=== PATIENT | female | born 2000 | race Caucasian/White ===

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

== ENCOUNTER 2020-08-02 19:47 | Emergency (ER) | payer MEDICAID ==
[2020-08-02 21:03] VITALS: BP 126/85; PULSE 76
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
== END 2020-08-02 22:03 | disposition designated cancer center or children's hospital (05) ==
LOC: JP.ED 19:47
DX: G89.29 Other chronic pain (principal); M54.5 Low back pain; E66.01 Morbid (severe) obesity due to excess calories; I10 Essential (primary) hypertension; J45.909 Unspecified asthma, uncomplicated; E11.9 Type 2 diabetes mellitus without complications; E03.9 Hypothyroidism, unspecified; Z68.43 Body mass index [BMI] 50.0-59.9, adult; Z87.891 Personal history of nicotine dependence; Z79.899 Other long term (current) drug therapy
CPT/HCPCS: 99283

== ENCOUNTER 2020-11-17 19:18 | Emergency (ER) | payer MEDICAID ==
[2020-11-17] MEDS ORDERED: Lidocaine 1% with EPINEPHrine 1:100,000 50 ML MDV INFILT STA (19:38)
[2020-11-17 19:39] VITALS: BP 149/101; PULSE 94
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
== END 2020-11-17 20:11 | disposition home or self-care (01) ==
LOC: JP.ED 19:18
DX: L02.416 Cutaneous abscess of left lower limb (principal); E03.9 Hypothyroidism, unspecified; I10 Essential (primary) hypertension; E66.9 Obesity, unspecified; E11.9 Type 2 diabetes mellitus without complications; Z68.43 Body mass index [BMI] 50.0-59.9, adult; Z79.899 Other long term (current) drug therapy
CPT/HCPCS: 10060; 87070; 87077; 87186; 87205; 99283-25

== ENCOUNTER 2020-11-20 13:55 | Emergency (ER) | payer MEDICAID ==
[2020-11-20 14:43] VITALS: BP 169/97; PULSE 87
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
== END 2020-11-20 15:50 | disposition home or self-care (01) ==
LOC: JP.ED 13:55
DX: L02.214 Cutaneous abscess of groin (principal); A49.02 Methicillin resistant Staphylococcus aureus infection, unspecified site; L73.2 Hidradenitis suppurativa; E03.9 Hypothyroidism, unspecified; E11.9 Type 2 diabetes mellitus without complications; E66.9 Obesity, unspecified; I10 Essential (primary) hypertension; Z68.30 Body mass index [BMI] 30.0-30.9, adult; Z79.899 Other long term (current) drug therapy
CPT/HCPCS: 99282; 99283

== ENCOUNTER 2020-11-27 15:15 | Emergency (ER) | payer MEDICAID ==
[2020-11-27 16:10] VITALS: BP 118/85; PULSE 78
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
== END 2020-11-27 16:50 | disposition home or self-care (01) ==
LOC: JP.ED 15:15
DX: Z48.817 Encounter for surgical aftercare following surgery on the skin and subcutaneous tissue (principal); E03.9 Hypothyroidism, unspecified; I10 Essential (primary) hypertension; E11.9 Type 2 diabetes mellitus without complications; E66.9 Obesity, unspecified; Z68.43 Body mass index [BMI] 50.0-59.9, adult; Z79.899 Other long term (current) drug therapy
CPT/HCPCS: 99282

== ENCOUNTER 2020-12-30 04:47 | Emergency (ER) | payer MEDICAID ==
[2020-12-30 04:53] VITALS: BP 140/95; PULSE 93
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
[2020-12-30] MEDS ORDERED: Sodium Chloride 0.9% 1,000 ML IV SCH (06:00)
[2020-12-30] MEDS ORDERED: Iopamidol 612 MG/ML 150 ML Bottle IV STA (06:01)
--- NOTE | 2020-12-30 07:24 | CRLCT ---
For Patients: As a result of the Century Cures Act, medical imaging exams and procedure reports are released immediately into your electronic medical record. You may view this report before your referring provider. If you have questions, please contact your health care provider. Indication: Lower abdominal pain Technique: Volumetric multidetector CT images of the abdomen and pelvis were obtained after the administration of intravenous contrast. 180 cc Isovue-300 low osmolar intravenous contrast Comparison: CT abdomen and pelvis September 11, 2019 Findings: There is minimal basilar atelectasis versus scar. The liver is markedly enlarged with a somewhat wrap-around configuration. There is moderate hepatic steatosis and minimal likely focal fatty sparing along the anteroinferior right liver. The portal vein is patent. There is prior cholecystectomy. There is no significant common biliary ductal dilatation or abrupt cut off. The spleen is normal in enhancement and size. There is mild thickening of the gastric antrum. The pancreas is normal in enhancement without significant atrophy. The adrenal glands are unremarkable. There is enlargement of the right kidney commensurate with compensatory hypertrophic change. There is likely again congenital absence of the left kidney. The colon is somewhat decompressed with minimal stool seen throughout the colon with somewhat dilated fluid-filled loops of distal small bowel. The appendix is unremarkable. There is no significant mesenteric, retroperitoneal, or pelvic sidewall lymph nodes. The aorta is nonaneurysmal. There is no significant atherosclerotic disease appreciated. There is again seen a somewhat prominent right ovary with a para ovarian cyst there is likely an additional small dominant left ovarian follicle. Otherwise, the pelvic viscera are unremarkable. Incidental note is made of a small linear surgical clip in the left lower quadrant abdomen seen on series 2, image 124 which may represent sequela of prior cholecystectomy. There is a minimal amount of fluid seen within the right greater than left lower quadrants otherwise there is no intra-abdominal free air or free fluid. There is a small fat containing umbilical hernia otherwise the anterior abdominal wall is grossly intact. The lumbar vertebral body heights are grossly maintained with minimal endplate Schmorl`s defects. There is moderate facet arthrosis. Impression: Demonstration of inflammatory changes and fluid within the right lower greater than left lower quadrants which could represent sequela of minimal distal enteritis changes versus developing physiologic changes of right ovary with follicular/cystic rupture and deposition of physiologic fluid. Correlate with clinical history and/or consider evaluation with ultrasound if there is persistent clinical concern. Stable marked hepatomegaly and hepatic steatosis with a somewhat wraparound liver configuration. 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 Normal appendix. Otherwise no additional acute intra-abdominal abnormalities are appreciated. Please note that all CT scans at this facility use dose modulation, iterative reconstruction, and/or weight-based dosing when appropriate to reduce radiation dose to as low as reasonably achievable. Dictated by Zen Valdovinos MD @ 12/30/2020 7:24:09 AM (Electronically Signed)
[2020-12-30] MEDS ORDERED: Acetaminophen/HYDROcodone 325-5 MG Tab PO ONE (07:52)
== END 2020-12-30 08:23 | disposition home or self-care (01) ==
LOC: JP.ED 04:47
DX: N83.201 Unspecified ovarian cyst, right side (principal); I10 Essential (primary) hypertension; J45.909 Unspecified asthma, uncomplicated; E11.9 Type 2 diabetes mellitus without complications; E03.9 Hypothyroidism, unspecified; E66.9 Obesity, unspecified; Z68.43 Body mass index [BMI] 50.0-59.9, adult; Z79.899 Other long term (current) drug therapy
CPT/HCPCS: 36415; 74177; 80053; 83605; 83690; 84703; 85025; 99285; A9270; J7030; Q9967

== ENCOUNTER 2020-12-30 16:13 | Emergency (ER) | payer MEDICAID ==
[2020-12-30 17:10] VITALS: BP 159/108; PULSE 96
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
== END 2020-12-30 18:08 | disposition home or self-care (01) ==
LOC: JP.ED 16:13
DX: T16.2XXA Foreign body in left ear, initial encounter (principal); I10 Essential (primary) hypertension; J45.909 Unspecified asthma, uncomplicated; E11.9 Type 2 diabetes mellitus without complications; E03.9 Hypothyroidism, unspecified; E66.9 Obesity, unspecified; Z68.43 Body mass index [BMI] 50.0-59.9, adult; Z79.899 Other long term (current) drug therapy
CPT/HCPCS: 99282

== ENCOUNTER 2021-01-19 15:53 | Emergency (ER) | payer MEDICAID | END 2021-01-19 17:03 | disposition left against medical advice (07) | LOC: JP.ED 15:53 | DX: Z53.21 Procedure and treatment not carried out due to patient leaving prior to being seen by health care provider (principal) ==

== ENCOUNTER 2021-04-10 13:08 | Emergency (ER) | payer MEDICAID | END 2021-04-10 14:30 | disposition left against medical advice (07) | LOC: JP.ED 13:08 | DX: M54.9 Dorsalgia, unspecified (principal); Z53.21 Procedure and treatment not carried out due to patient leaving prior to being seen by health care provider ==

== ENCOUNTER 2021-07-17 21:12 | Emergency (ER) | payer MEDICAID ==
[2021-07-17] MEDS ORDERED: Clindamycin HCl 150 MG Cap PO ONE (22:07)
[2021-07-17 22:08] VITALS: BP 109/69; PULSE 117
== END 2021-07-17 22:19 | disposition home or self-care (01) ==
LOC: JP.ED 21:12
DX: L02.31 Cutaneous abscess of buttock (principal); I10 Essential (primary) hypertension; E11.9 Type 2 diabetes mellitus without complications; E03.9 Hypothyroidism, unspecified; E66.9 Obesity, unspecified; Z68.30 Body mass index [BMI] 30.0-30.9, adult; Z79.899 Other long term (current) drug therapy; Z79.4 Long term (current) use of insulin; Z22.322 Carrier or suspected carrier of Methicillin resistant Staphylococcus aureus
CPT/HCPCS: 10060; 87070; 87205; 99283; 99283-25; A9270-GY

== ENCOUNTER 2021-08-27 10:45 | Emergency (ER) | payer MEDICAID ==
[2021-08-27 11:06] VITALS: BP 125/61; PULSE 88
== END 2021-08-27 11:50 | disposition home or self-care (01) ==
LOC: JP.ED 10:45
DX: O02.1 Missed abortion (principal); E11.65 Type 2 diabetes mellitus with hyperglycemia; E03.9 Hypothyroidism, unspecified; I10 Essential (primary) hypertension; E66.9 Obesity, unspecified; Z68.43 Body mass index [BMI] 50.0-59.9, adult; Z3A.09 9 weeks gestation of pregnancy; Z79.4 Long term (current) use of insulin; Z79.899 Other long term (current) drug therapy; Z90.49 Acquired absence of other specified parts of digestive tract
CPT/HCPCS: 82947; 99283

== ENCOUNTER 2022-07-07 20:06 | Emergency (ER) | payer MEDICAID ==
[2022-07-07 20:33] VITALS: BP 154/91; PULSE 106
[2022-07-07] MEDS ORDERED: Lidocaine 1% with EPINEPHrine 1:100,000 50 ML MDV INFILT STA (20:38)
== END 2022-07-07 21:20 | disposition home or self-care (01) ==
LOC: JP.ED 20:06
DX: L05.01 Pilonidal cyst with abscess (principal); I10 Essential (primary) hypertension; J45.909 Unspecified asthma, uncomplicated; E11.9 Type 2 diabetes mellitus without complications; E03.9 Hypothyroidism, unspecified; E66.9 Obesity, unspecified; Z86.16 Personal history of COVID-19; Z79.899 Other long term (current) drug therapy; Z87.891 Personal history of nicotine dependence; Z68.43 Body mass index [BMI] 50.0-59.9, adult
CPT/HCPCS: 10060; 10080; 87070; 87077; 87205; 99282; 99283

== ENCOUNTER 2023-05-27 18:51 | Inpatient (IN) | payer MEDICAID ==
[2023-05-27 19:45] LABS: BASOPHILS ABSOLUTE AUTO 0.12 K/uL (0.00-0.10); BASOPHILS PERCENT AUTO 0.3 % (0.1-1.3); EOSINOPHILS ABSOLUTE AUTO 0.04 K/uL (0.00-0.40); EOSINOPHILS PERCENT AUTO 0.1 % (0.0-5.4); HEMATOCRIT 43.9 % (34.3-46.0); HEMOGLOBIN 14.9 g/dL (11.2-15.5); IMMATURE GRAN ABSOLUTE AUTO 1.34 K/uL (0.00-0.23); LYMPHOCYTES ABSOLUTE AUTO 1.45 K/uL (0.8-3.3); LYMPHOCYTES PERCENT AUTO 3.3 % (11.4-47.7); MEAN CORPUSCULAR HEMOGLOBIN 29.9 pg (31.6-35.5); MEAN CORPUSCULAR HGB CONC 33.9 g/dL (31.6-35.5); MONOCYTES ABSOLUTE AUTO 3.59 K/uL (0.20-0.90); MONOCYTES PERCENT AUTO 8.1 % (3.3-12.6); NEUTROPHILS ABSOLUTE AUTO 37.78 K/uL (1.0-7.6); NEUTROPHILS PERCENT AUTO 85.2 % (40.0-78.1); PLATELET COUNT,PLT 369 K/uL (130-375); RED BLOOD CELL COUNT 4.99 M/uL (3.77-5.24)
[2023-05-27 19:50] LABS: WHITE BLOOD CELL COUNT,WBC 44.3 K/uL (3.2-11.0)
[2023-05-27 19:59] LABS: A/G RATIO 0.7 (1.2-2.2); ALANINE AMINOTRANSFERASE,ALT 24 U/L (12-78); ALBUMIN 3.2 g/dL (3.4-5.0); ALKALINE PHOSPHATASE 131 U/L (46-116); ASPARTATE AMNIOTRANSFERASE,AST 13 U/L (15-37); BILIRUBIN TOTAL 1.7 mg/dL (0.2-1.0); BLOOD UREA NITROGEN,BUN 10 mg/dL (7-18); CALCIUM 9.4 mg/dL (8.5-10.1); CARBON DIOXIDE,CO2 21 mmol/L (21-32); CHLORIDE,CL 96 mmol/L (100-108); ESTIMATED GFR 82 mL/min (>60); GLUCOSE RANDOM 175 mg/dL (74-106); POTASSIUM,K 3.5 mmol/L (3.6-5.2); SODIUM,NA 133 mmol/L (140-148)
[2023-05-27] MEDS: Sodium Chloride 0.9% 1,000 ML IV ONE ×2 (19:59→22:40)
[2023-05-27] MEDS: Ondansetron 4 MG/2 ML SDV IVPUSH ONE (20:00)
[2023-05-27 20:22] LABS: ANION GAP 19.5 mmol/L (5.0-14.0)
[2023-05-27] MEDS ORDERED: Naloxone 0.4 MG/ML SDV IVPUSH PRN ×3 (20:37→22:49)
[2023-05-27 20:43] LABS: C-REACTIVE PROTEIN 26.93 mg/dL (<0.50)
[2023-05-27] MEDS: cefTRIAXone 2 GM in Sodium Chloride 0.9% 50 ML IV ONE (21:02)
[2023-05-27] MEDS: HYDROmorphone 0.5 MG/0.5 ML Syringe IVPUSH ONE ×2 (21:04→22:14)
[2023-05-27] MEDS: Sodium Chloride 0.9% 10 ML Syringe FLUSH PRN (21:05)
[2023-05-27] MEDS: metroNIDAZOLE/Normal Saline 500 MG in Premix Bag 1 BAG IV ONE (22:01)
[2023-05-27] MEDS: Iopamidol 612 MG/ML 100 ML Bottle IV SCH (22:24)
[2023-05-27] MEDS: Sodium Chloride 0.9% 100 ML IV SCH (22:24)
[2023-05-27] MEDS: Morphine 2 MG/ML SYRINGE IVPUSH ONE (22:58)
[2023-05-27] MEDS: Vancomycin 2 GM in Sodium Chloride 0.9% 500 ML IV ONE (23:25)
[2023-05-27] MEDS: Water For Injection, Sterile 40 ML ONE (23:28)
[2023-05-28 01:02] LABS: CORONAVIRUS COVID-19 NAA NEGATIVE (NEGATIVE); INFLUENZA A NAA NEGATIVE (NEGATIVE); INFLUENZA B NAA NEGATIVE (NEGATIVE); RESPIRATORY SYNCYTIAL VIR NAA NEGATIVE (NEGATIVE)
[2023-05-28] MEDS ORDERED: Glucagon,Human Recombinant 1 MG Vial IM PRN (01:05)
[2023-05-28] MEDS ORDERED: 50% Dextrose in Water 50 ML Syringe IVPUSH PRN (01:05)
[2023-05-28] MEDS ORDERED: Docusate Sodium 100 MG Cap PO PRN (01:05)
[2023-05-28] MEDS ORDERED: Albuterol 0.083% 2.5 MG/3 ML Neb Soln NEB PRN (01:05)
[2023-05-28] MEDS ORDERED: Potassium Chloride 20 MEQ in Premix Bag 1 BAG IV ONE (01:05)
[2023-05-28] MEDS: Morphine 2 MG/ML SYRINGE IVPUSH PRN (01:37)
[2023-05-28] MEDS: Ondansetron 4 MG Tab.DIS PO PRN (01:40)
[2023-05-28] MEDS: Sodium Chloride 0.9% 1,000 ML IV SCH (01:42)
[2023-05-28] MEDS: Potassium Chloride 10 MEQ in Premix Bag 1 BAG IV SCH ×2 (01:49→10:16)
[2023-05-28] MEDS: oxyCODONE 5 MG Tab PO PRN (01:56)
[2023-05-28] MEDS: Acetaminophen 325 MG Tab PO PRN (01:59)
[2023-05-28] MEDS: Pantoprazole 40 MG Vial IV SCH (02:42)
[2023-05-28] MEDS: Sodium Chloride 0.9% 1,000 ML IV ONE (02:46)
[2023-05-28 05:26] LABS: MEAN CORPUSCULAR HEMOGLOBIN 30.4 pg (31.6-35.5); MEAN CORPUSCULAR HGB CONC 33.3 g/dL (31.6-35.5); MEAN CORPUSCULAR VOLUME 91.1 fL (81.4-99.0); PLATELET COUNT,PLT 237 K/uL (130-375); RED BLOOD CELL COUNT 3.95 M/uL (3.77-5.24); WHITE BLOOD CELL COUNT,WBC 26.4 K/uL (3.2-11.0)
[2023-05-28 05:51] LABS: C-REACTIVE PROTEIN 24.06 mg/dL (<0.50); CALCIUM 7.9 mg/dL (8.5-10.1); CREATININE 0.8 mg/dL (0.6-1.0); EST CRCL DRUG DOSING (CG) 87.24 mL/min; POTASSIUM,K 3.3 mmol/L (3.6-5.2)
[2023-05-28 05:53] LABS: ANION GAP 14.3 mmol/L (5.0-14.0)
[2023-05-28 06:17] LABS: BAND ABSOLUTE MAN 5.28 K/uL; BAND PERCENT MAN 20 % (5-11); LYMPHOCYTES ABSOLUTE MAN 1.32 K/uL (0.8-3.3); LYMPHOCYTES PERCENT MAN 5 % (24-44); METAMYELOCYTE ABSOLUTE MAN 1.32 K/uL; METAMYELOCYTE PERCENT MAN 5 %; MONOCYTES ABSOLUTE MAN 0.79 K/uL (0.20-0.90); MONOCYTES PERCENT MAN 3 % (2-6); NEUTROPHILS ABSOLUTE MAN 17.69 K/uL (1.0-7.6); SEG NEUTROPHILS PERCENT MAN 67 % (36-66)
[2023-05-28] MEDS: metroNIDAZOLE/Normal Saline 500 MG in Premix Bag 1 BAG IV SCH (06:25)
[2023-05-28] MEDS ORDERED: Non-Formulary Medication 1 Each (Levothyroxine [Levothyroxine] 200 MCG Tablet) PO SCH (07:30)
[2023-05-28] MEDS ORDERED: Levothyroxine 100 MCG Tab PO SCH (07:30)
[2023-05-28] MEDS ORDERED: Vancomycin 1 GM SDV IV SCH (08:00)
[2023-05-28] MEDS ORDERED: DOCOSAHEXAENOIC ACID 200 MG PO SCH (09:00)
[2023-05-28] MEDS: Insulin Lispro 100 Unit/ML 3 ML KwikPen SUBCUT SCH (09:07)
[2023-05-28] MEDS: Citalopram 20 MG Tab PO SCH ×2 (09:20→21:40)
[2023-05-28] MEDS: Enoxaparin 40 MG/0.4 ML Syringe SUBCUT SCH (09:20)
[2023-05-28] MEDS: busPIRone 5 MG Tab PO SCH (09:20)
[2023-05-28] MEDS: Magnesium Sulfate/Water 2 GM in Premix Bag 1 BAG IV SCH (16:00)
[2023-05-28] MEDS ORDERED: Ondansetron 4 MG/2 ML SDV IVPUSH PRN (17:10)
[2023-05-28] MEDS: LORazepam 2 MG/ML SDV IV PRN (17:46)
[2023-05-28] MEDS ORDERED: Pantoprazole 40 MG Vial IV SCH (21:00)
[2023-05-28] MEDS: cefTRIAXone 2 GM in Sodium Chloride 0.9% 50 ML IV SCH (21:39)
[2023-05-28] MEDS: Pantoprazole 40 MG Tab.CR PO SCH (21:40)
[2023-05-28] MEDS: Insulin Glargine,Human Rec. Analog 100 Units/ML 3 ML Pen SUBCUT SCH (21:40)
[2023-05-28] MEDS: oxyCODONE 5 MG Tab PO ONE (22:07)
[2023-05-28] MEDS: Melatonin 3 MG Tab PO SCH (22:08)
[2023-05-29] MEDS: oxyCODONE 5 MG Tab PO PRN (05:20)
[2023-05-29] MEDS: Sodium Chloride 0.9% 1,000 ML IV SCH (06:40)
[2023-05-29 10:53] LABS: CALCIUM 8.4 mg/dL (8.5-10.1); CREATININE 0.8 mg/dL (0.6-1.0); EST CRCL DRUG DOSING (CG) 87.24 mL/min; POTASSIUM,K 3.6 mmol/L (3.6-5.2); VANCOMYCIN RANDOM 12.5 ug/mL (0.0-50.0)
[2023-05-29 10:56] LABS: HEMATOCRIT 38.1 % (34.3-46.0); HEMOGLOBIN 12.7 g/dL (11.2-15.5); MEAN CORPUSCULAR HEMOGLOBIN 30.2 pg (31.6-35.5); MEAN CORPUSCULAR HGB CONC 33.3 g/dL (31.6-35.5); MEAN CORPUSCULAR VOLUME 90.5 fL (81.4-99.0); RED BLOOD CELL COUNT 4.21 M/uL (3.77-5.24)
[2023-05-29 11:46] LABS: ANION GAP 15.6 mmol/L (5.0-14.0)
[2023-05-29] MEDS: Potassium Chloride 20 MEQ Tab.ER PO ONE (12:12)
[2023-05-29] MEDS: Ibuprofen 600 MG Tab PO PRN (13:00)
[2023-05-29] MEDS: Meropenem 1 GM in Sodium Chloride 0.9% 100 ML IV SCH (16:49)
[2023-05-29] MEDS ORDERED: fentaNYL 250 MCG/5 ML SDV ONE (17:16)
[2023-05-29] MEDS ORDERED: Dexamethasone 4 MG/ML SDV ONE (17:17)
[2023-05-29] MEDS ORDERED: Propofol 200 MG/20 ML SDV ONE (17:17)
[2023-05-29] MEDS ORDERED: Glycopyrrolate 0.2 MG/ML 5 ML MDV ONE (17:17)
[2023-05-29] MEDS ORDERED: Succinylcholine 200 MG/10 ML MDV ONE (17:17)
[2023-05-29] MEDS ORDERED: Ondansetron 4 MG/2 ML SDV ONE (17:17)
[2023-05-29] MEDS ORDERED: Rocuronium 50 MG/5 ML Vial ONE (17:17)
[2023-05-29] MEDS ORDERED: Neostigmine Methylsulfate 10 MG/10 ML MDV ONE (17:17)
[2023-05-29] MEDS ORDERED: Bupivacaine 0.5%/EPINEPHrine 1:200,000 50 ML MDV ONE (17:23)
[2023-05-29] MEDS ORDERED: Sennosides/Docusate Sodium 50-8.6 MG Tab PO PRN (17:26)
[2023-05-29] MEDS ORDERED: Promethazine 25 MG/ML SDV IM PRN (17:26)
[2023-05-29] MEDS ORDERED: Benzocaine/Cetylpyridinium/Menthol Lozenge MUCMEM PRN (17:26)
[2023-05-29] MEDS ORDERED: Acetaminophen/oxyCODONE 325-10 MG Tab PO PRN (17:26)
[2023-05-29] MEDS ORDERED: Polyethylene Glycol 3350 Powder 17 GM Packet PO PRN (17:26)
[2023-05-29] MEDS ORDERED: Sugammadex Sodium 200 MG/2 ML VIAL IV ONE (18:53)
[2023-05-29] MEDS ORDERED: Lactated Ringers 1,000 ML ONE (18:55)
[2023-05-29] MEDS: fentaNYL 100 MCG/2 ML SDV IVPUSH PRN (20:26)
[2023-05-29] MEDS: Insulin Glargine,Human Rec. Analog 100 Units/ML 3 ML Pen SUBCUT SCH (21:13)
[2023-05-29] MEDS: HYDROmorphone 0.5 MG/0.5 ML Syringe IVPUSH PRN (21:20)
[2023-05-29] MEDS: diphenhydrAMINE 50 MG/ML SDV IVPUSH PRN (22:46)
[2023-05-30] MEDS: Sodium Chloride 0.9% 1,000 ML IV SCH (02:03)
[2023-05-30 05:25] LABS: HEMATOCRIT 36.2 % (34.3-46.0); HEMOGLOBIN 11.9 g/dL (11.2-15.5); MEAN CORPUSCULAR HGB CONC 32.9 g/dL (31.6-35.5); MEAN CORPUSCULAR VOLUME 91.2 fL (81.4-99.0); RED BLOOD CELL COUNT 3.97 M/uL (3.77-5.24); WHITE BLOOD CELL COUNT,WBC 22.1 K/uL (3.2-11.0)
[2023-05-30 05:54] LABS: A/G RATIO 0.4 (1.2-2.2); ALANINE AMINOTRANSFERASE,ALT 13 U/L (12-78); ALBUMIN 1.5 g/dL (3.4-5.0); ALKALINE PHOSPHATASE 111 U/L (46-116); ASPARTATE AMNIOTRANSFERASE,AST 12 U/L (15-37); BILIRUBIN TOTAL 0.3 mg/dL (0.2-1.0); BLOOD UREA NITROGEN,BUN 10 mg/dL (7-18); CALCIUM 8.3 mg/dL (8.5-10.1); CARBON DIOXIDE,CO2 22 mmol/L (21-32); CHLORIDE,CL 103 mmol/L (100-108); CREATININE 0.7 mg/dL (0.6-1.0); ESTIMATED GFR 125 mL/min (>60); GLUCOSE RANDOM 131 mg/dL (74-106); POTASSIUM,K 4.3 mmol/L (3.6-5.2); PROTEIN TOTAL,TP 5.6 g/dL (6.4-8.2); SODIUM,NA 134 mmol/L (140-148)
[2023-05-30 07:08] LABS: ANION GAP 13.3 mmol/L (5.0-14.0)
[2023-05-30 07:09] LABS: C-REACTIVE PROTEIN 31.03 mg/dL (<0.50)
[2023-05-30] MEDS ORDERED: Sodium Chloride 0.9% 1,000 ML IV SCH (10:15)
[2023-05-30] MEDS: Morphine 4 MG/ML Syringe IVPUSH PRN (11:46)
[2023-05-30] MEDS: ALPRAZolam 0.5 MG Tab PO PRN (11:46)
[2023-05-31 06:09] LABS: HEMOGLOBIN 11.1 g/dL (11.2-15.5); MEAN CORPUSCULAR HEMOGLOBIN 29.6 pg (31.6-35.5); MEAN CORPUSCULAR HGB CONC 32.6 g/dL (31.6-35.5); MEAN CORPUSCULAR VOLUME 90.7 fL (81.4-99.0); RED BLOOD CELL COUNT 3.75 M/uL (3.77-5.24); WHITE BLOOD CELL COUNT,WBC 21.4 K/uL (3.2-11.0)
[2023-05-31 06:33] LABS: CREATININE 0.6 mg/dL (0.6-1.0); EST CRCL DRUG DOSING (CG) 116.32 mL/min; POTASSIUM,K 3.5 mmol/L (3.6-5.2); VANCOMYCIN RANDOM 23.2 ug/mL (0.0-50.0)
[2023-05-31 06:44] LABS: ANION GAP 8.5 mmol/L (5.0-14.0)
[2023-05-31] MEDS ORDERED: fentaNYL 100 MCG/2 ML SDV ONE (08:36)
[2023-05-31] MEDS ORDERED: Propofol 200 MG/20 ML SDV ONE ×2 (08:36→10:35)
[2023-05-31] MEDS ORDERED: Midazolam 1 MG/ML 2 ML SDV ONE (08:37)
[2023-05-31] MEDS ORDERED: Lidocaine 1% with EPINEPHrine 1:100,000 50 ML MDV ONE (09:44)
[2023-05-31] MEDS ORDERED: Bupivacaine 0.5% 50 ML MDV ONE (09:44)
[2023-05-31] MEDS ORDERED: Lactated Ringers 1,000 ML ONE (10:36)
[2023-06-01 06:12] LABS: HEMATOCRIT 35.8 % (34.3-46.0); HEMOGLOBIN 11.6 g/dL (11.2-15.5); MEAN CORPUSCULAR HEMOGLOBIN 29.7 pg (31.6-35.5); MEAN CORPUSCULAR HGB CONC 32.4 g/dL (31.6-35.5); MEAN CORPUSCULAR VOLUME 91.6 fL (81.4-99.0); RED BLOOD CELL COUNT 3.91 M/uL (3.77-5.24); WHITE BLOOD CELL COUNT,WBC 19.8 K/uL (3.2-11.0)
[2023-06-01 06:30] LABS: C-REACTIVE PROTEIN 13.41 mg/dL (<0.50); CALCIUM 7.9 mg/dL (8.5-10.1); CREATININE 0.6 mg/dL (0.6-1.0); EST CRCL DRUG DOSING (CG) 116.32 mL/min; POTASSIUM,K 3.4 mmol/L (3.6-5.2)
[2023-06-01 06:36] LABS: ANION GAP 9.4 mmol/L (5.0-14.0)
[2023-06-01] MEDS: Potassium Chloride 20 MEQ Tab.ER PO ONE (09:10)
[2023-06-01] MEDS: Linezolid 600 MG in Premix Bag 1 BAG IV SCH (15:00)
[2023-06-01] MEDS ORDERED: diphenhydrAMINE 25 MG Cap PO PRN (15:52)
[2023-06-01] MEDS: Acyclovir 200 MG Cap PO SCH (21:14)
[2023-06-02] MEDS ORDERED: Bupivacaine 0.5% 50 ML MDV ONE (08:17)
[2023-06-02] MEDS ORDERED: Lidocaine 1% with EPINEPHrine 1:100,000 50 ML MDV ONE (08:17)
[2023-06-02] MEDS ORDERED: Midazolam 1 MG/ML 2 ML SDV ONE (08:45)
[2023-06-02] MEDS ORDERED: fentaNYL 100 MCG/2 ML SDV ONE (08:45)
[2023-06-02] MEDS ORDERED: Propofol 200 MG/20 ML SDV ONE ×2 (08:45→09:11)
[2023-06-02] MEDS: Ondansetron 4 MG/2 ML SDV IVPUSH PRN (14:44)
[2023-06-03 04:44] LABS: HEMATOCRIT 33.1 % (34.3-46.0); HEMOGLOBIN 10.7 g/dL (11.2-15.5); MEAN CORPUSCULAR HEMOGLOBIN 29.5 pg (31.6-35.5); MEAN CORPUSCULAR HGB CONC 32.3 g/dL (31.6-35.5); MEAN CORPUSCULAR VOLUME 91.2 fL (81.4-99.0); RED BLOOD CELL COUNT 3.63 M/uL (3.77-5.24); WHITE BLOOD CELL COUNT,WBC 17.2 K/uL (3.2-11.0)
[2023-06-03 05:02] LABS: C-REACTIVE PROTEIN 14.18 mg/dL (<0.50); CALCIUM 7.5 mg/dL (8.5-10.1); CREATININE 0.6 mg/dL (0.6-1.0); EST CRCL DRUG DOSING (CG) 116.32 mL/min; POTASSIUM,K 3.3 mmol/L (3.6-5.2)
[2023-06-03 05:13] LABS: ANION GAP 5.3 mmol/L (5.0-14.0)
[2023-06-03] MEDS: Potassium Chloride 20 MEQ Tab.ER PO ONE (10:04)
[2023-06-04 04:39] LABS: HEMATOCRIT 33.1 % (34.3-46.0); HEMOGLOBIN 10.9 g/dL (11.2-15.5); MEAN CORPUSCULAR HEMOGLOBIN 29.7 pg (31.6-35.5); MEAN CORPUSCULAR HGB CONC 32.9 g/dL (31.6-35.5); MEAN CORPUSCULAR VOLUME 90.2 fL (81.4-99.0); RED BLOOD CELL COUNT 3.67 M/uL (3.77-5.24); WHITE BLOOD CELL COUNT,WBC 13.8 K/uL (3.2-11.0)
[2023-06-04 04:56] LABS: CALCIUM 7.5 mg/dL (8.5-10.1); CREATININE 0.5 mg/dL (0.6-1.0); EST CRCL DRUG DOSING (CG) 139.58 mL/min; POTASSIUM,K 3.8 mmol/L (3.6-5.2)
[2023-06-04 05:25] LABS: ANION GAP 4.8 mmol/L (5.0-14.0)
[2023-06-04] MEDS: hydrOXYzine HCL 100 MG/2 ML SDV IM PRN (21:41)
[2023-06-05 06:25] LABS: BASOPHILS ABSOLUTE AUTO 0.04 K/uL (0.00-0.10); BASOPHILS PERCENT AUTO 0.4 % (0.1-1.3); EOSINOPHILS ABSOLUTE AUTO 0.18 K/uL (0.00-0.40); EOSINOPHILS PERCENT AUTO 1.7 % (0.0-5.4); HEMATOCRIT 34.7 % (34.3-46.0); HEMOGLOBIN 11.2 g/dL (11.2-15.5); IMMATURE GRAN ABSOLUTE AUTO 0.52 K/uL (0.00-0.23); LYMPHOCYTES ABSOLUTE AUTO 2.21 K/uL (0.8-3.3); LYMPHOCYTES PERCENT AUTO 21.1 % (11.4-47.7); MEAN CORPUSCULAR HEMOGLOBIN 29.6 pg (31.6-35.5); MEAN CORPUSCULAR HGB CONC 32.3 g/dL (31.6-35.5); MEAN CORPUSCULAR VOLUME 91.6 fL (81.4-99.0); MONOCYTES PERCENT AUTO 5.7 % (3.3-12.6); NEUTROPHILS ABSOLUTE AUTO 6.91 K/uL (1.0-7.6); NEUTROPHILS PERCENT AUTO 66.1 % (40.0-78.1); PLATELET COUNT,PLT 288 K/uL (130-375); RED BLOOD CELL COUNT 3.79 M/uL (3.77-5.24); WHITE BLOOD CELL COUNT,WBC 10.5 K/uL (3.2-11.0)
[2023-06-05 06:51] LABS: CALCIUM 7.8 mg/dL (8.5-10.1); CREATININE 0.6 mg/dL (0.6-1.0); EST CRCL DRUG DOSING (CG) 116.32 mL/min; MAGNESIUM 1.8 mg/dL (1.8-2.4); POTASSIUM,K 3.8 mmol/L (3.6-5.2)
[2023-06-05 06:53] LABS: ANION GAP 6.8 mmol/L (5.0-14.0)
[2023-06-05] MEDS ORDERED: Midazolam 1 MG/ML 2 ML SDV ONE (08:01)
[2023-06-05] MEDS ORDERED: Propofol 200 MG/20 ML SDV ONE ×2 (08:01→09:06)
[2023-06-05] MEDS ORDERED: fentaNYL 100 MCG/2 ML SDV ONE (08:01)
[2023-06-05] MEDS ORDERED: Lactated Ringers 1,000 ML ONE (08:59)
[2023-06-08 04:47] LABS: HEMATOCRIT 33.1 % (34.3-46.0); HEMOGLOBIN 10.8 g/dL (11.2-15.5); MEAN CORPUSCULAR HEMOGLOBIN 29.6 pg (31.6-35.5); MEAN CORPUSCULAR HGB CONC 32.6 g/dL (31.6-35.5); MEAN CORPUSCULAR VOLUME 90.7 fL (81.4-99.0); RED BLOOD CELL COUNT 3.65 M/uL (3.77-5.24); WHITE BLOOD CELL COUNT,WBC 7.9 K/uL (3.2-11.0)
[2023-06-08 05:16] LABS: CREATININE 0.7 mg/dL (0.6-1.0); EST CRCL DRUG DOSING (CG) 99.7 mL/min
[2023-06-08] MEDS ORDERED: fentaNYL 100 MCG/2 ML SDV ONE (10:28)
[2023-06-08] MEDS ORDERED: Midazolam 1 MG/ML 2 ML SDV ONE (10:28)
[2023-06-08] MEDS ORDERED: Propofol 200 MG/20 ML SDV ONE ×2 (10:30→14:10)
[2023-06-08 11:59] VITALS: PULSE 65
[2023-06-08] MEDS: LORazepam 2 MG/ML SDV IV ONE (13:40)
[2023-06-08 17:27] VITALS: BP 120/67
== END 2023-06-08 16:50 | disposition home or self-care (01) | DRG 264 ==
LOC: JP.ED 18:51 → JP.MS 23:26 → JP.ICU 05-29 20:09 → JP.2SS 05-30 10:05
PROVIDERS: ADMIT Hospitalist; ATTEND Hospitalist
PROC: 0JBC0ZZ Excision of Pelvic Region Subcutaneous Tissue and Fascia, Open Approach (ICD-10-PCS; principal; 2023-06-02 09:00)
PROC: 0HB9XZZ Excision of Perineum Skin, External Approach (ICD-10-PCS; 2023-06-05)
PROC: 2W0 Placement, Anatomical Regions, Change (ICD-10-PCS; 2023-06-08)
DX: E10.52 Type 1 diabetes mellitus with diabetic peripheral angiopathy with gangrene (principal); M72.6 Necrotizing fasciitis; L03.314 Cellulitis of groin; L03.115 Cellulitis of right lower limb; I96 Gangrene, not elsewhere classified; Z68.43 Body mass index [BMI] 50.0-59.9, adult; I10 Essential (primary) hypertension; J45.909 Unspecified asthma, uncomplicated; E87.6 Hypokalemia; J98.2 Interstitial emphysema; E66.01 Morbid (severe) obesity due to excess calories; G40.909 Epilepsy, unspecified, not intractable, without status epilepticus; F41.9 Anxiety disorder, unspecified; F32.A Depression, unspecified; E66.9 Obesity, unspecified; E03.9 Hypothyroidism, unspecified; Z79.890 Hormone replacement therapy; Z79.4 Long term (current) use of insulin; Z86.16 Personal history of COVID-19; Z86.14 Personal history of Methicillin resistant Staphylococcus aureus infection; Z90.89 Acquired absence of other organs; Z90.49 Acquired absence of other specified parts of digestive tract; Z11.52 Encounter for screening for COVID-19
CPT/HCPCS: 0241U; 36415; 71045; 71045-26; 71260; 72192; 72192-26; 74177; 80048; 80053; 80202; 82947; 83605; 83690; 83735; 84703; 85025; 85027; 86140; 87040; 87070; 87075; 87077; 87186; 87205; 88304; 96361; 96365; 96367; 96375; 96376; 99222; 99232; 99238; 99284; 99285-25; A9270-GY; C1751; C1894; C9113; J0330; J0696; J1100; J1170; J1200; J1650; J1815; J1815-GY; J1836; J2020; J2060; J2185; J2250; J2270; J2405; J2704; J2710; J3010; J3370; J3410; J3475; J3480; J3490; J7030; J7040; J7050; J7120; Q0162; Q9967

== ENCOUNTER 2023-06-15 21:34 | Emergency (ER) | payer MEDICAID ==
[2023-06-15 21:47] VITALS: BP 112/70; PULSE 90
[2023-06-15] MEDS: Ertapenem 1 GM in Sodium Chloride 0.9% 50 ML IV SCH (21:59)
[2023-06-15 22:25] LABS: BASOPHILS ABSOLUTE AUTO 0.09 K/uL (0.00-0.10); BASOPHILS PERCENT AUTO 0.8 % (0.1-1.3); EOSINOPHILS ABSOLUTE AUTO 0.26 K/uL (0.00-0.40); EOSINOPHILS PERCENT AUTO 2.4 % (0.0-5.4); HEMATOCRIT 32.5 % (34.3-46.0); HEMOGLOBIN 10.9 g/dL (11.2-15.5); IMMATURE GRAN ABSOLUTE AUTO 0.04 K/uL (0.00-0.23); IMMATURE GRAN PERCENT AUTO 0.4 % (0.0-0.7); LYMPHOCYTES ABSOLUTE AUTO 3.99 K/uL (0.8-3.3); MEAN CORPUSCULAR HEMOGLOBIN 29.9 pg (31.6-35.5); MEAN CORPUSCULAR HGB CONC 33.5 g/dL (31.6-35.5); MEAN CORPUSCULAR VOLUME 89.3 fL (81.4-99.0); MONOCYTES ABSOLUTE AUTO 0.74 K/uL (0.20-0.90); MONOCYTES PERCENT AUTO 6.9 % (3.3-12.6); NEUTROPHILS ABSOLUTE AUTO 5.65 K/uL (1.0-7.6); NEUTROPHILS PERCENT AUTO 52.5 % (40.0-78.1); PLATELET COUNT,PLT 439 K/uL (130-375); RED BLOOD CELL COUNT 3.64 M/uL (3.77-5.24); WHITE BLOOD CELL COUNT,WBC 10.8 K/uL (3.2-11.0)
[2023-06-15 22:42] LABS: ANION GAP 7.3 mmol/L (5.0-14.0); C-REACTIVE PROTEIN 1.4 mg/dL (<0.50); CALCIUM 8.7 mg/dL (8.5-10.1); CREATININE 0.8 mg/dL (0.6-1.0); EST CRCL DRUG DOSING (CG) 87.24 mL/min; POTASSIUM,K 3.8 mmol/L (3.6-5.2)
[2023-06-15] MEDS: Ketorolac 15 MG/ML SDV IVPUSH ONE (23:16)
[2023-06-15] MEDS: Lidocaine 1% with EPINEPHrine 1:100,000 50 ML MDV INJECT ONE (23:16)
[2023-06-15] MEDS: Prochlorperazine 10 MG/2 ML SDV IVPUSH ONE (23:16)
[2023-06-15] MEDS: diphenhydrAMINE 50 MG/ML SDV IVPUSH ONE (23:26)
== END 2023-06-15 23:45 | disposition home or self-care (01) ==
LOC: JP.ED 21:34
DX: L02.215 Cutaneous abscess of perineum (principal); I10 Essential (primary) hypertension; J45.909 Unspecified asthma, uncomplicated; E03.9 Hypothyroidism, unspecified; E11.9 Type 2 diabetes mellitus without complications; F17.210 Nicotine dependence, cigarettes, uncomplicated; Z79.4 Long term (current) use of insulin; Z79.899 Other long term (current) drug therapy
CPT/HCPCS: 10060; 36415; 80048; 83605; 85025; 86140; 96365; 96375; 99283; J0780; J1200; J1335; J1885; J3490

== ENCOUNTER 2023-08-15 19:50 | Emergency (ER) | payer MEDICAID ==
[2023-08-15 20:01] VITALS: PULSE 102
[2023-08-15 20:22] VITALS: BP 150/94
[2023-08-15 21:04] LABS: BASOPHILS ABSOLUTE AUTO 0.06 K/uL (0.00-0.10); BASOPHILS PERCENT AUTO 0.4 % (0.1-1.3); EOSINOPHILS ABSOLUTE AUTO 0.32 K/uL (0.00-0.40); EOSINOPHILS PERCENT AUTO 1.9 % (0.0-5.4); HEMATOCRIT 40.6 % (34.3-46.0); HEMOGLOBIN 14.3 g/dL (11.2-15.5); IMMATURE GRAN ABSOLUTE AUTO 0.07 K/uL (0.00-0.23); IMMATURE GRAN PERCENT AUTO 0.4 % (0.0-0.7); LYMPHOCYTES ABSOLUTE AUTO 4.75 K/uL (0.8-3.3); LYMPHOCYTES PERCENT AUTO 28.6 % (11.4-47.7); MEAN CORPUSCULAR HEMOGLOBIN 29.6 pg (31.6-35.5); MEAN CORPUSCULAR HGB CONC 35.2 g/dL (31.6-35.5); MEAN CORPUSCULAR VOLUME 84.1 fL (81.4-99.0); MONOCYTES ABSOLUTE AUTO 0.82 K/uL (0.20-0.90); MONOCYTES PERCENT AUTO 4.9 % (3.3-12.6); NEUTROPHILS ABSOLUTE AUTO 10.61 K/uL (1.0-7.6); NEUTROPHILS PERCENT AUTO 63.8 % (40.0-78.1); PLATELET COUNT,PLT 326 K/uL (130-375); RED BLOOD CELL COUNT 4.83 M/uL (3.77-5.24); WHITE BLOOD CELL COUNT,WBC 16.6 K/uL (3.2-11.0)
[2023-08-15 21:27] LABS: A/G RATIO 0.7 (1.2-2.2); ALANINE AMINOTRANSFERASE,ALT 28 U/L (12-78); ALBUMIN 3.2 g/dL (3.4-5.0); ALKALINE PHOSPHATASE 90 U/L (46-116); ANION GAP 11.5 mmol/L (5.0-14.0); ASPARTATE AMNIOTRANSFERASE,AST 19 U/L (15-37); BILIRUBIN TOTAL 0.3 mg/dL (0.2-1.0); BLOOD UREA NITROGEN,BUN 8 mg/dL (7-18); C-REACTIVE PROTEIN 0.63 mg/dL (<0.50); CALCIUM 9.4 mg/dL (8.5-10.1); CARBON DIOXIDE,CO2 28 mmol/L (21-32); CHLORIDE,CL 104 mmol/L (100-108); CREATININE 0.8 mg/dL (0.6-1.0); EST CRCL DRUG DOSING (CG) 87.24 mL/min; ESTIMATED GFR 107 mL/min (>60); GLUCOSE RANDOM 149 mg/dL (74-106); POTASSIUM,K 3.5 mmol/L (3.6-5.2); PROTEIN TOTAL,TP 7.5 g/dL (6.4-8.2); SODIUM,NA 140 mmol/L (140-148)
== END 2023-08-15 22:11 | disposition home or self-care (01) ==
LOC: JP.ED 19:50
DX: N89.8 Other specified noninflammatory disorders of vagina (principal); I10 Essential (primary) hypertension; J45.909 Unspecified asthma, uncomplicated; E11.9 Type 2 diabetes mellitus without complications; Z79.4 Long term (current) use of insulin; Z79.899 Other long term (current) drug therapy; Z79.51 Long term (current) use of inhaled steroids; Z86.16 Personal history of COVID-19; Z90.49 Acquired absence of other specified parts of digestive tract
CPT/HCPCS: 36415; 80053; 83605; 84145; 85025; 86140; 99283

== ENCOUNTER 2024-04-20 03:22 | Emergency (ER) | payer MEDICAID ==
[2024-04-20 03:33] VITALS: BP 151/92; PULSE 104
== END 2024-04-20 03:58 | disposition home or self-care (01) ==
LOC: JP.ED 03:22
DX: L73.9 Follicular disorder, unspecified (principal); E11.9 Type 2 diabetes mellitus without complications; Z79.4 Long term (current) use of insulin; E03.9 Hypothyroidism, unspecified; I10 Essential (primary) hypertension; Z90.49 Acquired absence of other specified parts of digestive tract
CPT/HCPCS: 99283

== ENCOUNTER 2024-04-23 18:57 | Emergency (ER) | payer MEDICAID ==
[2024-04-23] MEDS: Ondansetron 4 MG/2 ML SDV IVPUSH ONE (19:31)
[2024-04-23] MEDS: Loperamide 2 MG Cap PO ONE (19:31)
[2024-04-23] MEDS: Sodium Chloride 0.9% 1,000 ML IV SCH ×2 (19:32→20:41)
[2024-04-23 19:35] LABS: BASOPHILS ABSOLUTE AUTO 0.04 K/uL (0.00-0.10); BASOPHILS PERCENT AUTO 0.3 % (0.1-1.3); EOSINOPHILS ABSOLUTE AUTO 0.18 K/uL (0.00-0.40); EOSINOPHILS PERCENT AUTO 1.3 % (0.0-5.4); HEMATOCRIT 43.1 % (34.3-46.0); HEMOGLOBIN 14.7 g/dL (11.2-15.5); IMMATURE GRAN ABSOLUTE AUTO 0.08 K/uL (0.00-0.23); IMMATURE GRAN PERCENT AUTO 0.6 % (0.0-0.7); LYMPHOCYTES ABSOLUTE AUTO 0.44 K/uL (0.8-3.3); LYMPHOCYTES PERCENT AUTO 3.3 % (11.4-47.7); MEAN CORPUSCULAR HEMOGLOBIN 30.2 pg (31.6-35.5); MEAN CORPUSCULAR HGB CONC 34.1 g/dL (31.6-35.5); MEAN CORPUSCULAR VOLUME 88.7 fL (81.4-99.0); MONOCYTES ABSOLUTE AUTO 0.64 K/uL (0.20-0.90); MONOCYTES PERCENT AUTO 4.7 % (3.3-12.6); NEUTROPHILS ABSOLUTE AUTO 12.15 K/uL (1.0-7.6); NEUTROPHILS PERCENT AUTO 89.8 % (40.0-78.1); PLATELET COUNT,PLT 275 K/uL (130-375); RED BLOOD CELL COUNT 4.86 M/uL (3.77-5.24); WHITE BLOOD CELL COUNT,WBC 13.5 K/uL (3.2-11.0)
[2024-04-23 19:57] LABS: A/G RATIO 0.9 (1.2-2.2); ALANINE AMINOTRANSFERASE,ALT 56 U/L (12-78); ALBUMIN 3.4 g/dL (3.4-5.0); ALKALINE PHOSPHATASE 90 U/L (46-116); ANION GAP 8.5 mmol/L (5.0-14.0); ASPARTATE AMNIOTRANSFERASE,AST 44 U/L (15-37); BILIRUBIN TOTAL 0.7 mg/dL (0.2-1.0); BLOOD UREA NITROGEN,BUN 8 mg/dL (7-18); C-REACTIVE PROTEIN 2.35 mg/dL (<0.50); CARBON DIOXIDE,CO2 28 mmol/L (21-32); CHLORIDE,CL 105 mmol/L (100-108); CREATININE 0.8 mg/dL (0.6-1.0); ESTIMATED GFR 106 mL/min (>60); GLUCOSE RANDOM 173 mg/dL (74-106); POTASSIUM,K 4.2 mmol/L (3.6-5.2); PROTEIN TOTAL,TP 7.4 g/dL (6.4-8.2); SODIUM,NA 141 mmol/L (140-148)
[2024-04-23 20:22] VITALS: BP 126/78; PULSE 86
[2024-04-23 20:25] LABS: CORONAVIRUS COVID-19 NAA NEGATIVE (NEGATIVE); INFLUENZA A NAA NEGATIVE (NEGATIVE); INFLUENZA B NAA NEGATIVE (NEGATIVE); RESPIRATORY SYNCYTIAL VIR NAA NEGATIVE (NEGATIVE)
== END 2024-04-23 22:18 | disposition home or self-care (01) ==
LOC: JP.ED 18:57
DX: A08.4 Viral intestinal infection, unspecified (principal); I10 Essential (primary) hypertension; E11.9 Type 2 diabetes mellitus without complications; J45.909 Unspecified asthma, uncomplicated; Z90.49 Acquired absence of other specified parts of digestive tract; Z79.899 Other long term (current) drug therapy; Z79.890 Hormone replacement therapy; Z79.4 Long term (current) use of insulin
CPT/HCPCS: 0241U; 36415; 80053; 83690; 85025; 86140; 96361; 96374; 99283; 99284; A9270; J2405; J7030

== ENCOUNTER 2024-10-23 17:11 | Emergency (ER) | payer MEDICAID | END 2024-10-23 18:37 | disposition left against medical advice (07) | LOC: JP.ED 17:11 | DX: Z53.21 Procedure and treatment not carried out due to patient leaving prior to being seen by health care provider (principal) ==

== ENCOUNTER 2024-11-13 01:22 | Emergency (ER) | payer MEDICAID ==
[2024-11-13 02:18] LABS: PLATELET COUNT,PLT 300 K/uL (130-375); RED BLOOD CELL COUNT 4.47 M/uL (3.77-5.24); WHITE BLOOD CELL COUNT,WBC 13.9 K/uL (3.2-11.0)
[2024-11-13 02:34] LABS: EOSINOPHILS ABSOLUTE MAN 0.56 K/uL (0.00-0.40); EOSINOPHILS PERCENT MAN 4 % (2-4); LYMPHOCYTES ABSOLUTE MAN 4.73 K/uL (0.8-3.3); LYMPHOCYTES PERCENT MAN 34 % (24-44); MONOCYTES ABSOLUTE MAN 0.70 K/uL (0.20-0.90); MONOCYTES PERCENT MAN 5 % (2-6); NEUTROPHILS ABSOLUTE MAN 7.92 K/uL (1.0-7.6); SEG NEUTROPHILS PERCENT MAN 57 % (36-66)
[2024-11-13 02:59] VITALS: BP 123/70; PULSE 66
== END 2024-11-13 02:55 | disposition home or self-care (01) ==
LOC: JP.ED 01:22
DX: L03.314 Cellulitis of groin (principal); I10 Essential (primary) hypertension; E11.9 Type 2 diabetes mellitus without complications; J45.909 Unspecified asthma, uncomplicated; Z79.4 Long term (current) use of insulin; Z79.51 Long term (current) use of inhaled steroids; Z79.890 Hormone replacement therapy; Z86.16 Personal history of COVID-19; Z90.49 Acquired absence of other specified parts of digestive tract
CPT/HCPCS: 36415; 85025; 99283; A9270